=== PATIENT | male | born 1955 ===

== ENCOUNTER 2023-12-24 11:02 | Day surgery (SDC) | payer OTHER ==
[~2023-12-24] VITALS: Ht 175.3 cm; Wt 72.6 kg
[~2023-12-24 11:02] MED LIST: AMLODIPINE BESY10 MG PO; ATEN50 PO; GLIMEPIRIDE1 M2 PO; LORA10ER PO; Norco 5-325 Ta1 EACH PO; Ropivacaine 0.5% HCl/Pf 5 MG/ML 20ML VIAL ONE; SODCHL2SO LEFTEYE
[2023-12-24] MEDS ORDERED: NS 50 ML IV ONE (11:28)
[2023-12-24] MEDS ORDERED: CeFAZolin Sodium 2,000 MG VIAL ONE (11:28)
[2023-12-24] MEDS ORDERED: Lactated Ringer's 1,000 ML IV ONE ×2 (11:35)
[2023-12-24] MEDS ORDERED: SITA25T2 PO (11:41)
[2023-12-24] MEDS ORDERED: EPINEPhrine HCl 1 MG/ML 1ML Amp ONE (12:15)
[2023-12-24] MEDS ORDERED: FentaNYL Citrate 50 MCG/ML 2 ML Injection ONE (12:15)
[2023-12-24] MEDS ORDERED: Lidocaine 1%-Epineph 1:100000 20 ML MDV ONE (12:15)
[2023-12-24] MEDS ORDERED: Bupivacaine HCl 0.25% 50 ML Vial ONE (12:15)
[2023-12-24] MEDS ORDERED: Midazolam HCl 1MG / ML 2ML Vial ONE (12:15)
[2023-12-24] MEDS ORDERED: Dexamethasone Sod Phos 10 MG/ML 1ML VIAL ONE (12:34)
[2023-12-24] MEDS ORDERED: propofoL 20 ML IV ONE (12:34)
[2023-12-24] MEDS ORDERED: Ondansetron HCl 2 MG / ML 2ML Vial ONE (12:34)
--- NOTE | 2023-12-24 12:36 | NUR ---
12/24/23 1236 Mitzy Stone TIME OUT PERFORMED AT BEDSIDE WITH DR. HE AND DR LYLES AT 1225 PRIOR TO START OF POPLITEAL BLOCK. POPLITEAL BLOCK STARTED AT 1229 AND COMPLETED AT 1233. PATIENT PLACED ON 3 L O2 T/O PROCEDURE AND SPO2 MONITORED CONTINOUSLY. PT TOLERATED PROCEDURE WELL.
[2023-12-24] MEDS ORDERED: EPINEPhrine HCl 1 MG/ML 1ML Amp XX ONE (12:59)
--- NOTE | 2023-12-24 13:05 | NUR ---
12/24/23 1305 Bernarda Mcintosh EX FIX IN PLACE. PREPPED INCISION AREA TO DRAPE, TOES, & THEN ONTO EX FIX.
[2023-12-24] MEDS ORDERED: ePHEDrine Sulfate 50 MG/ML 1ML Injection ONE (13:08)
[2023-12-24 14:39] VITALS: BP 136/85
--- NOTE | 2023-12-24 15:07 | NUR ---
12/24/23 1507 Ellen Castañeda REPORT FROM [facility]. PT TRANSFERS FROM [facility] TO [facility] WITHOUT DIFFICULTY. DENIES PAIN/NAUSEA. TOLERATING PO FLUIDS. D/C INSTRUCTIONS REVIEWED AND PATIENT STATES UNDERSTANDING. IV DC'D, WAITING FOR PATIENTS TO ARRIVE.
== END 2023-12-24 15:28 | disposition home or self-care (01) ==
LOC: ORSCSDS 11:02
PROVIDERS: Podiatrist Foot & Ankle Surgery
PROC: 0QP104Z Removal of Internal Fixation Device from Sacrum, Open Approach (ICD-10-PCS; principal; 2023-12-24 13:00)
PROC: 0QSK04Z Reposition Left Fibula with Internal Fixation Device, Open Approach (ICD-10-PCS; principal; 2023-12-24 13:00)
PROC: 0QSH04Z Reposition Left Tibia with Internal Fixation Device, Open Approach (ICD-10-PCS; principal; 2023-12-24 13:00)
DX: S82.852D Displaced trimalleolar fracture of left lower leg, subsequent encounter for closed fracture with routine healing (principal); I10 Essential (primary) hypertension; E11.40 Type 2 diabetes mellitus with diabetic neuropathy, unspecified; Z79.899 Other long term (current) drug therapy; Z87.891 Personal history of nicotine dependence
CPT/HCPCS: 82947; C1713; C1769; J0171; J0690; J1100; J2250; J2405; J2704; J2795; J3010

== ENCOUNTER → 2024-07-04 | Outpatient (CLI) | payer OTHER ==
[~2024-07-04] MED LIST changes: -Ropivacaine 0.5% HCl/Pf 5 MG/ML 20ML VIAL ONE; +SITA25T2 PO
[2024-07-04 16:17] LABS: Stool Occult Bld Immuno 1 Negative (NEGATIVE)
== END ==
LOC: LAB 06:45 → LAB SHORT 06:45 → LAB FUT 04-01 12:10
PROVIDERS: Family Medicine
DX: Z12.11 Encounter for screening for malignant neoplasm of colon (principal)
CPT/HCPCS: G0328

== ENCOUNTER → 2025-08-24 | Outpatient (CLI) | payer OTHER ==
[2025-08-24 15:54] LABS: Alanine Aminotransfer (ALT/SGP 33 U/L (12-78); Albumin, Blood 3.8 g/dL (3.4-5.0); Albumin/Globulin Ratio 1.0 (0.8-1.8); Anion Gap 8 mmol/L (3-11); Aspartate Aminotrans (AST/SGOT 22 U/L (12-37); Bilirubin, Total 0.3 mg/dL (0.1-1.0); Blood Urea Nitrogen 14 mg/dL (8-24); CHOL/HDL RATIO 2.9; CO2, Blood 26 mmol/L (21-32); Calcium, Blood 9.2 mg/dL (8.5-10.1); Chloride, Blood 106 mmol/L (98-108); Cholesterol 242 mg/dL (50-200); Creatinine, Blood 0.85 mg/dL (0.60-1.20); Globulin, Blood 3.9 g/dL (2.2-4.0); Glucose, Blood 213 mg/dL (70-99); HDL Cholesterol 83 mg/dL (>39); LDL/HDL RATIO 1.8; Low Density Lipoprotein Chol 148 mg/dL (0-110); Potassium, Blood 3.9 mmol/L (3.5-5.5); Sodium, Blood 136 mmol/L (136-145); Total Protein, Blood 7.7 g/dL (6.4-8.2); Triglycerides 53 mg/dL (30-160); Very Low Density Lipoprot Chol 10 mg/dL (6-32)
== END ==
LOC: LAB 11:32 → LAB SHORT 11:32
PROVIDERS: Family Medicine
DX: E78.2 Mixed hyperlipidemia (principal)
CPT/HCPCS: 80053; 80061